=== PATIENT | female | born 1950 | race Caucasian/White ===

== ENCOUNTER 2020-04-01 15:41 | Emergency (ER) | payer MEDICARE, OTHER ==
[~2020-04-01 15:41] MED LIST: NORCO 5-325 TA1 EACH PO; ZOFRAN ODT 4 MG4 MG PO
[2020-04-01] MEDS ORDERED: NORCO 5-325 TA1 EACH PO (17:50)
[2020-04-20] MEDS ORDERED: VENLAFAXINE HCL75 MG PO (07:23)
[2020-04-20] MEDS ORDERED: ZINC SULFATE220 M1 PO (07:23)
[2020-04-20] MEDS ORDERED: HYDROXYZINE HCL25 MG PO (07:23)
[2020-04-20] MEDS ORDERED: DOXEPIN PO (07:24)
[2020-04-20] MEDS ORDERED: LACTULOSE20 GM/30 M PO (07:25)
[2020-04-20] MEDS ORDERED: [UNRECOGNIZED DRUG - SUPPLY] SC (07:25)
[2020-04-20] MEDS ORDERED: FUROSEMIDE40 MG PO (07:26)
[2020-04-20] MEDS ORDERED: HYDROCODON-ACE1 EAC4 PO (07:26)
[2020-04-20] MEDS ORDERED: [UNRECOGNIZED DRUG - OTHER] PO (07:27)
[2020-04-20] MEDS ORDERED: XIFAXAN 550 MG550 MG PO (07:27)
[2020-04-20] MEDS ORDERED: SPIRONOLACTONE100 MG PO (07:27)
[2020-04-20] MEDS ORDERED: OMEPRAZOLE40 MG PO (07:28)
[2020-04-20] MEDS ORDERED: PERCOCET 7.5-31 EACH PO (08:38)
[2020-04-20] MEDS ORDERED: ZOFRAN4 MG PO (11:17)
== END 2020-04-01 18:06 | disposition home or self-care (01) ==
LOC: ER1 15:41
DX: S82.62XA Displaced fracture of lateral malleolus of left fibula, initial encounter for closed fracture (principal); S82.392A Other fracture of lower end of left tibia, initial encounter for closed fracture; Z88.5 Allergy status to narcotic agent; W18.31XA Fall on same level due to stepping on an object, initial encounter; Y92.009 Unspecified place in unspecified non-institutional (private) residence as the place of occurrence of the external cause
CPT/HCPCS: 29515; 73590; 73610; 73630; 99283

== ENCOUNTER → 2020-04-19 | Outpatient (CLI) | payer MEDICARE, OTHER ==
[~2020-04-19] MED LIST changes: +DOXEPIN PO; +FUROSEMIDE40 MG PO; +HYDROCODON-ACE1 EAC4 PO; +HYDROXYZINE HCL25 MG PO; +LACTULOSE20 GM/30 M PO; +OMEPRAZOLE40 MG PO; +PERCOCET 7.5-31 EACH PO; +SPIRONOLACTONE100 MG PO; +VENLAFAXINE HCL75 MG PO; +XIFAXAN 550 MG550 MG PO; +ZINC SULFATE220 M1 PO; +ZOFRAN4 MG PO; +[UNRECOGNIZED DRUG - OTHER] PO; +[UNRECOGNIZED DRUG - SUPPLY] SC
[2020-04-19 13:40] LABS: HEMOGLOBIN 15.4 gm/dl (12.3-15.3); RED BLOOD COUNT 4.57 M/UL (4.00-5.10); WHITE BLOOD COUNT 4.2 K/UL (4.5-11.0)
[2020-04-19 14:00] LABS: BUN/CREATININE RATIO 19 (0-10)
== END ==
LOC: OPSV2 12:20
PROVIDERS: Orthopaedic Surgery
DX: Z01.818 Encounter for other preprocedural examination (principal); S82.432A Displaced oblique fracture of shaft of left fibula, initial encounter for closed fracture; R91.8 Other nonspecific abnormal finding of lung field; R94.31 Abnormal electrocardiogram [ECG] [EKG]; X58.XXXA Exposure to other specified factors, initial encounter
CPT/HCPCS: 71046; 80048; 80076; 82140; 83036; 85025; 85610; 93005

== ENCOUNTER → 2020-04-20 | Day surgery (SDC) | payer MEDICARE, OTHER ==
[~2020-04-20] VITALS: Ht 160 cm; Wt 83.0 kg
[2020-04-20 06:59] LABS: HEMOGLOBIN 16.2 gm/dl (12.3-15.3); RED BLOOD COUNT 4.76 M/UL (4.00-5.10); WHITE BLOOD COUNT 5.2 K/UL (4.5-11.0)
== END | disposition home or self-care (01) ==
LOC: OR 06:22
PROVIDERS: Orthopaedic Surgery
DX: S82.832A Other fracture of upper and lower end of left fibula, initial encounter for closed fracture (principal); G89.18 Other acute postprocedural pain; I10 Essential (primary) hypertension; K74.60 Unspecified cirrhosis of liver; F41.9 Anxiety disorder, unspecified; E11.9 Type 2 diabetes mellitus without complications; F17.200 Nicotine dependence, unspecified, uncomplicated; Z79.4 Long term (current) use of insulin; Z88.4 Allergy status to anesthetic agent; Z79.899 Other long term (current) drug therapy; Z79.891 Long term (current) use of opiate analgesic; X58.XXXA Exposure to other specified factors, initial encounter
CPT/HCPCS: 73610; 76000; 82962; 85027; C1713; J0592; J0690; J1100; J2001; J2400; J2704; J2795; J3010; J7030; J7120

== ENCOUNTER → 2020-07-28 | Outpatient (CLI) | payer MEDICARE, OTHER ==
[2020-07-28 11:27] LABS: BODY FLUID SOURCE PERITONEAL; MONONUCLEAR CELLS 89.8 (75-100); POLYMORPHONUCLEAR % 10.2 (0-25); RBC (AUTOMATED) 600 (0-100000); WBC (AUTOMATED) 293 (0-500)
== END ==
LOC: US 09:51
PROVIDERS: Internal Medicine
DX: R18.8 Other ascites (principal); K74.69 Other cirrhosis of liver
CPT/HCPCS: 87070; 87205; 89051

== ENCOUNTER 2020-09-05 23:53 | Emergency (ER) | payer MEDICARE, OTHER | END 2020-09-06 03:52 | disposition home or self-care (01) | LOC: ER1 23:53 | DX: S01.01XA Laceration without foreign body of scalp, initial encounter (principal); Z23 Encounter for immunization; W22.8XXA Striking against or struck by other objects, initial encounter; Y92.009 Unspecified place in unspecified non-institutional (private) residence as the place of occurrence of the external cause | CPT/HCPCS: 12001; 70450; 72125; 90471; 90715; 99284 ==

== ENCOUNTER → 2020-11-20 | Outpatient (CLI) | payer MEDICARE, OTHER | LOC: LAB 11:08 | PROVIDERS: Internal Medicine | DX: R18.8 Other ascites (principal) | CPT/HCPCS: 36415; 80048 ==

== ENCOUNTER → 2020-12-05 | Outpatient (CLI) | payer MEDICARE, OTHER ==
[2020-12-06 11:14] LABS: CREATININE, URINE 63.6 mg/dL (Not Estab.); MICROALB/CREAT RATIO <5 (0-29)
== END ==
LOC: LAB 12:20
PROVIDERS: Internal Medicine
DX: K72.90 Hepatic failure, unspecified without coma (principal); E11.9 Type 2 diabetes mellitus without complications; R18.8 Other ascites
CPT/HCPCS: 36415; 80053; 82043; 82570; 83036